=== PATIENT | female | born 1970 | race African-American/Black ===

== ENCOUNTER 2017-01-23 18:52 | Emergency (ER) | payer OTHER ==
[~2017-01-23] VITALS: Ht 167.6 cm; Wt 106.2 kg
[2017-01-23 19:38] LABS: HEMATOCRIT 36.3 % (36.0-46.0); MCHC 33.3 G/DL (30.0-36.0); MCV 89.9 FL (83-99); MEAN PLAT.VOLUME 9.4 uM^3 (9.5-12.4); PLATELET COUNT 369 K/uL (156-360); RBC DIS.WIDTH-CV 12.1 % (11.8-14.6); RBC DIS.WIDTH-SD 39.8 % (39-53); RED BLOOD COUNT 4.04 M/uL (3.80-5.20); WHITE BLOOD COUNT 11.1 K/uL (4.1-10.2)
[2017-01-23 19:47] LABS: CHLORIDE 103 mEq/L (99-109); POTASSIUM 4.4 mEq/L (3.7-5.4); SODIUM 139 mEq/L (136-147)
[2017-01-23 19:49] LABS: GLUCOSE 228 mg/dL (70-99)
[2017-01-23 19:50] LABS: ANION GAP 9 MEQ/L (2-14)
[2017-01-23 19:51] LABS: TOTAL BILIRUBIN 0.2 mg/dL (0.0-1.0)
[2017-01-23 19:52] LABS: ALKALINE PHOSPHATASE 62 IU/L (3-129)
[2017-01-23 19:53] LABS: GFR ESTIMATE (CALCULATED) > 59 mL/min/
[2017-01-23 19:54] LABS: UREA NITROGEN (BUN) 11 mg/dL (9-23)
[2017-01-23 20:01] LABS: QUANTITATIVE HCG < 4.0 MIU/ML
[2017-01-23 21:10] LABS: ADD MIUA? YES; BILIRUBIN NEGATIVE; BLOOD SMALL; COLOR YELLOW ((YELLOW)); GLUCOSE (STRIP) >=500; KETONES NEGATIVE; LEUKOCYTES NEGATIVE; NITRITE NEGATIVE; PROTEIN (STRIP) NEGATIVE; SPECIFIC GRAVITY 1.013 (1.000-1.030); UROBILINOGEN 0.2 MG/DL (0.2-1.0)
[2017-01-23] MEDS ORDERED: OMEPRAZOLE40 M1 PO (21:40)
[2017-01-23 21:41] LABS: BACTERIA 2+ /HPF; BUDDING YEAST RARE; CALCIUM OXALATE CRYSTALS 1+ /HPF; EPITHELIAL CELLS 2+ /HPF; MUCUS TRACE /LPF; RED BLOOD CELLS 0-5 /HPF (0-5); UCUL ADDED? YES; WHITE BLOOD CELLS 0-5 /HPF (0-5)
[2017-01-23 21:46] VITALS: BP 168/95
== END 2017-01-23 21:47 | disposition home or self-care (01) ==
LOC: EME 18:52
DX: R10.13 Epigastric pain (principal); N39.0 Urinary tract infection, site not specified; Z87.442 Personal history of urinary calculi
CPT/HCPCS: 80053; 81003; 84702; 85027; 99281; 99284; J3010